=== PATIENT | male | born 1960 | race African-American/Black ===

== ENCOUNTER 2018-11-15 08:14 | Observation (INO) | payer OTHER ==
--- NOTE | 2018-11-15 08:57 | RAD REPORT ---
EXAM DESCRIPTION: RAD - Chest Single View - 11/15/2018 8:47 am CLINICAL HISTORY: COUGH Chest pain. COMPARISON: No comparisons FINDINGS: Portable technique limits examination quality. Mild interstitial pulmonary edema. The heart is normal in size. No displaced fractures.Left-sided jose a ous catheter has tip in the SVC. IMPRESSION: Mild interstitial pulmonary edema.
[2018-11-15] MEDS ORDERED: MORPHINE 4 MG/ML SYR ONE (09:02)
[2018-11-15] MEDS ORDERED: ONDANSETRON 4 MG/2 ML VIAL ONE (09:02)
[2018-11-15 09:17] LABS: Absolute Lymphocytes (CBC) 0.8 K/uL (0.7-4.9); Absolute Monocytes 0.3 K/uL (0.1-1.3); Absolute Neutrophil 2.4 K/uL (1.8-8.0); Basophils % 0.8 % (0-1.3); Eosinophils % 2.5 % (0-4.4); Hematocrit 28.2 % (39.6-49.0); Lymphocytes % 22.9 % (15.3-44.8); MPV 9.8 fL (7.6-11.3); Monocytes % 8.8 % (3.3-12.3); RBC Red Blood Cell Count 3.22 M/uL (4.33-5.43)
[2018-11-15 09:48] LABS: Albumin 3.3 g/dL (3.4-5.0); Bilirubin Direct 0.2 mg/dL (0-0.2); Bilirubin Total 0.7 mg/dL (0.2-1.0); Magnesium 2.4 mg/dL (1.8-2.4); Potassium 4.3 mmol/L (3.5-5.1); Troponin (Emerg Dept Use Only) 0.29 ng/mL (0.0-0.045)
[2018-11-15 09:55] LABS: Protime INR 1.05
--- NOTE | 2018-11-15 10:01 | ER ---
Nurse's Notes [facility] Name: Edson Montilla Age: 58 yrs Sex: Male : 1960 Arrival Date: 11/15/2018 Time: 08:17 Bed 14 Private MD: Diagnosis: End stage renal disease;Dyspnea-VOLUME OVERLOAD;Abdominal tenderness;Type 1 diabetes mellitus;Essential (primary) hypertension;Anemia, unspecified Presentation: 11/15 08:25 Presenting complaint: Patient states: pt reports hx of chronic pain throughout body, sg but worsening this morning in his hands and feet today, reports feeling short of breath at rest, Dialysis on M/W/F, c/o diarrhea starting this morning but reports his stool is always loose, missed dialysis yesterday. Transition of care: patient was not received from another setting of care. Onset of symptoms was November 15, 2018. Risk Assessment: Do you want to hurt yourself or someone else? Patient reports no desire to harm self or others. Initial Sepsis Screen: Does the patient meet any 2 criteria? No. Patient's initial sepsis screen is negative. Does the patient have a suspected source of infection? No. Patient's initial sepsis screen is negative. Care prior to arrival: None. 08:25 Method Of Arrival: Ambulatory sg 08:25 Acuity: CHANDU 3 sg Historical: - Allergies: 08:41 No Known Allergies; iw - Home Meds: 08:41 Lomotil 2.5-0.025 mg oral tab [Active]; hydrocodone-acetaminophen 7.5-325 mg Oral tab 1 iw tab every 6 hours [Active]; Lyrica 75 mg Oral 2 times per day [Active]; amlodipine 10 mg tab 1 tab once daily [Active]; mirtazapine 15 mg Oral TbDL 1 tab once daily [Active]; aspirin 81 mg Oral TbEC 1 tab once daily [Active]; gabapentin 100 mg oral cap 3 caps 3 times per day [Active]; Lantus 100 unit/mL Sub-Q soln 55 unit nightly [Active]; - PMHx: 08:41 Dialysis; Diabetes - IDDM; Hypertension; neuropathy; iw - PSHx: 08:41 None; iw - Immunization history:: Adult Immunizations up to date. - Social history:: Smoking status: Patient/guardian denies using tobacco. - Family history:: not pertinent. - Ebola Screening: : Patient negative for fever greater than or equal to 101.5 degrees Fahrenheit, and additional compatible Ebola Virus Disease symptoms Patient denies exposure to infectious person Patient denies travel to an Ebola-affected area in the 21 days before illness onset No symptoms or risks identified at this time. Screenin:00 Abuse screen: Denies threats or abuse. Denies injuries from another. Nutritional iw screening: No deficits noted. Tuberculosis screening: No symptoms or risk factors identified. Fall Risk IV access (20 points). Assessment: 09:00 General: Appears in no apparent distress. comfortable, well groomed, well developed, sg well nourished, Behavior is calm, cooperative, appropriate for age. Pain: Complains of pain in body aches. Neuro: Level of Consciousness is awake, alert, obeys commands, Oriented to person, place, time, situation, Sulfonator Operator are equal bilaterally Moves all extremities. Full function Gait is steady, Speech is normal, Facial symmetry appears normal, Pupils are PERRLA. Cardiovascular: Reports shortness of breath, Capillary refill is brisk in bilateral fingers Patient's skin is warm and dry. Chest pain is denied. Respiratory: Airway is patent Respiratory effort is even, unlabored, Respiratory pattern is regular, symmetrical, Breath sounds are clear. GI: Abdomen is flat, non-distended, Bowel sounds present X 4 quads. : No signs and/or symptoms were reported regarding the genitourinary system. EENT: No signs and/or symptoms were reported regarding the EENT system. Derm: Skin is intact, is healthy with good turgor, Skin is dry, Skin is normal, Skin temperature is warm. Musculoskeletal: Circulation, motion, and sensation intact. Range of motion: intact in all extremities, Swelling present in right hand, left hand, right foot and left foot. 10:00 Reassessment: Patient appears in no apparent distress at this time. Patient and/or sg family updated on plan of care and expected duration. Pain level reassessed. Patient is alert, oriented x 3, equal unlabored respirations, skin warm/dry/pink. Vital Signs: 08:25 BP 144 / 99; Pulse 87; Resp 18; Temp 97.8; Pulse Ox 97% on R/A; Weight 83.01 kg; Height sg 6 ft. 0 in. (182.88 cm); Pain 10/10; 09:45 BP 152 / 101; Pulse 88; Resp 17; Pulse Ox 98% on R/A; sg 10:30 BP 124 / 89; Pulse 81; Resp 20; Pulse Ox 99% on R/A; aj 10:44 BP 129 / 88; Pulse 85; Resp 20; Temp 98.1(O); Pulse Ox 96% on R/A; mh5 08:25 Body Mass Index 24.82 (83.01 kg, 182.88 cm) sg [place] Coma Score: 09:45 Eye Response: spontaneous(4). Verbal Response: oriented(5). Motor Response: obeys sg commands(6). Total: 15. ED Course: 08:17 Patient arrived in ED. mr 08:21 Manuel Junior MD is Attending Physician. felicia 08:24 Carlos Bermudez, NEHEMIAS is Primary Nurse. sg 08:31 Triage completed. sg 08:31 Arm band placed on. sg 08:43 EKG done, by certified control systems technician. reviewed by Manuel Junior MD. at1 08:47 X-ray completed. Portable x-ray completed in exam room. Patient tolerated procedure jb2 well. 08:47 XRAY Chest (1 view) In Process Unspecified. EDMS 09:08 Initial lab(s) drawn, by me, sent to lab. Inserted saline lock: 24 gauge in right hand, iw using aseptic technique. Blood collected. 10:00 Zhen Glynn MD is Hospitalizing Provider. felicia 12:00 Patient has correct armband on for positive identification. iw 12:00 No provider procedures requiring assistance completed. Patient admitted, IV remains in iw place. Administered Medications: 09:50 Drug: morphine 4 mg Route: IVP; Site: right hand; sg 12:05 Follow up: Response: Pain is decreased aj 09:50 Drug: Zofran 4 mg Route: IVP; Site: right hand; sg 12:05 Follow up: Response: No adverse reaction aj 09:50 Drug: Lasix 60 mg Route: IVP; Site: right hand; sg 12:04 Follow up: Response: No adverse reaction aj 10:20 Drug: Aspirin 162 mg Route: PO; aj 12:03 Follow up: Response: No adverse reaction aj 10:20 Drug: Lopressor (metoprolol TARTRATE) 50 mg Route: PO; aj 12:03 Follow up: Response: No adverse reaction aj Outcome: 10:01 Decision to Hospitalize by Provider. felicia 11:59 Admitted to Tele accompanied by tech, via wheelchair, room 209, with chart, Report iw called to NEHEMIAS Lou 11:59 Condition: good 11:59 Discharge instructions given to patient, Instructed on the need for admit, Demonstrated understanding of instructions. 12:07 Patient left the ED. aj Signatures: Dispatcher [employer] EDCarlos Conner RN RN sg Myers, Amanda, RN RN aj Anderson, Corey, MD MD cha Rivera, Lynn mr Padavid, Drew jb2 Tiffanie Mayfield RN RN iw Gonzales, Amanda, erp pm EKG [facility]1 Marleny Beal 5 Corrections: (The following items were deleted from the chart) 08:37 08:25 Presenting complaint: Patient states: pt reports hx of chronic pain throughout iw body, but worsening this morning in his hands and feet today, reports feeling short of breath at rest, Dialysis on M/W/F, c/o diarrhea starting this morning but reports his stool is always loose sg
--- NOTE | 2018-11-15 10:02 | EDPHYS ---
Physician Documentation [facility] Name: Edson Montilla Age: 58 yrs Sex: Male : 1960 Arrival Date: 11/15/2018 Time: 08:17 Bed 14 Private MD: ED Physician Manuel Junior HPI: 11/15 08:31 This 58 yrs old Black Male presents to ER via Unassigned with complaints of Diarrhea, felicia Breathing Difficulty. 08:31 The patient presents to the emergency department with nausea, diarrhea, abdominal pain, felicia of the suprapubic area, right upper quadrant, left upper quadrant, right lower quadrant and left lower quadrant. Onset: The symptoms/episode began/occurred 3 day(s) ago. Possible causes: unknown. The symptoms are aggravated by nothing. The symptoms are alleviated by nothing. Severity of symptoms: At their worst the symptoms were mild in the emergency department the symptoms are unchanged. The patient has experienced similar episodes in the past, multiple times. Historical: - Allergies: 08:41 No Known Allergies; iw - Home Meds: 08:41 Lomotil 2.5-0.025 mg oral tab [Active]; hydrocodone-acetaminophen 7.5-325 mg Oral tab 1 iw tab every 6 hours [Active]; Lyrica 75 mg Oral 2 times per day [Active]; amlodipine 10 mg tab 1 tab once daily [Active]; mirtazapine 15 mg Oral TbDL 1 tab once daily [Active]; aspirin 81 mg Oral TbEC 1 tab once daily [Active]; gabapentin 100 mg oral cap 3 caps 3 times per day [Active]; Lantus 100 unit/mL Sub-Q soln 55 unit nightly [Active]; - PMHx: 08:41 Dialysis; Diabetes - IDDM; Hypertension; neuropathy; iw - PSHx: 08:41 None; iw - Immunization history:: Adult Immunizations up to date. - Social history:: Smoking status: Patient/guardian denies using tobacco. - Family history:: not pertinent. - Ebola Screening: : Patient negative for fever greater than or equal to 101.5 degrees Fahrenheit, and additional compatible Ebola Virus Disease symptoms Patient denies exposure to infectious person Patient denies travel to an Ebola-affected area in the 21 days before illness onset No symptoms or risks identified at this time. ROS: 08:31 Constitutional: Negative for fever, chills, and weight loss, Eyes: Negative for injury, felicia pain, redness, and discharge, ENT: Negative for injury, pain, and discharge, Neck: Negative for injury, pain, and swelling, Cardiovascular: Negative for chest pain, palpitations, and edema, Respiratory: Negative for shortness of breath, cough, wheezing, and pleuritic chest pain, Back: Negative for injury and pain, : Negative for injury, bleeding, discharge, and swelling, MS/Extremity: Negative for injury and deformity, Skin: Negative for injury, rash, and discoloration, Neuro: Negative for headache, weakness, numbness, tingling, and seizure, Psych: Negative for depression, anxiety, suicide ideation, homicidal ideation, and hallucinations, Allergy/Immunology: Negative for hives, rash, and allergies, Endocrine: Negative for neck swelling, polydipsia, polyuria, polyphagia, and marked weight changes, Hematologic/Lymphatic: Negative for swollen nodes, abnormal bleeding, and unusual bruising. 08:31 Abdomen/GI: Positive for abdominal pain, diarrhea. Exam: 08:31 Constitutional: This is a well developed, well nourished patient who is awake, alert, felicia and in no acute distress. Head/Face: Normocephalic, atraumatic. Eyes: Pupils equal round and reactive to light, extra-ocular motions intact. Lids and lashes normal. Conjunctiva and sclera are non-icteric and not injected. Cornea within normal limits. Periorbital areas with no swelling, redness, or edema. ENT: Nares patent. No nasal discharge, no septal abnormalities noted. Tympanic membranes are normal and external auditory canals are clear. Oropharynx with no redness, swelling, or masses, exudates, or evidence of obstruction, uvula midline. Mucous membranes moist. Neck: Trachea midline, no thyromegaly or masses palpated, and no cervical lymphadenopathy. Supple, full range of motion without nuchal rigidity, or vertebral point tenderness. No Meningismus. Chest/axilla: Normal chest wall appearance and motion. Nontender with no deformity. No lesions are appreciated. Cardiovascular: Regular rate and rhythm with a normal S1 and S2. No gallops, murmurs, or rubs. Normal PMI, no JVD. No pulse deficits. Respiratory: Lungs have equal breath sounds bilaterally, clear to auscultation and percussion. No rales, rhonchi or wheezes noted. No increased work of breathing, no retractions or nasal flaring. Back: No spinal tenderness. No costovertebral tenderness. Full range of motion. MS/ Extremity: Pulses equal, no cyanosis. Neurovascular intact. Full, normal range of motion. Neuro: Awake and alert, GCS 15, oriented to person, place, time, and situation. Cranial nerves II-XII grossly intact. Motor strength 5/5 in all extremities. Sensory grossly intact. Cerebellar exam normal. Normal gait. Psych: Awake, alert, with orientation to person, place and time. Behavior, mood, and affect are within normal limits. 08:31 Abdomen/GI: Inspection: distension, Bowel sounds: normal, Palpation: nontender, Liver: no appreciated palpable abnormalities, Hernia: not appreciated. Vital Signs: 08:25 BP 144 / 99; Pulse 87; Resp 18; Temp 97.8; Pulse Ox 97% on R/A; Weight 83.01 kg; Height sg 6 ft. 0 in. (182.88 cm); Pain 10/10; 09:45 BP 152 / 101; Pulse 88; Resp 17; Pulse Ox 98% on R/A; sg 10:30 BP 124 / 89; Pulse 81; Resp 20; Pulse Ox 99% on R/A; aj 10:44 BP 129 / 88; Pulse 85; Resp 20; Temp 98.1(O); Pulse Ox 96% on R/A; mh5 08:25 Body Mass Index 24.82 (83.01 kg, 182.88 cm) Jessica Coma Score: 09:45 Eye Response: spontaneous(4). Verbal Response: oriented(5). Motor Response: obeys sg commands(6). Total: 15. MDM: 08:21 Patient medically screened. felicia 08:34 Data reviewed: vital signs, nurses notes, lab test result(s), EKG, radiologic studies, felicia plain films. 11/15 08:31 Order name: Basic Metabolic Panel; Complete Time: 09:54 felicia 11/15 08:31 Order name: CBC with Diff [facility] 11/15 08:31 Order name: LFT's; Complete Time: 09:54 [facility] 11/15 08:31 Order name: Magnesium; Complete Time: 09:54 [facility] 11/15 08:31 Order name: NT PRO-BNP; Complete Time: 09:54 [facility] 11/15 08:31 Order name: PT-INR [facility] 11/15 08:31 Order name: Troponin (emerg Dept Use Only); Complete Time: 09:54 [facility] 11/15 10:24 Order name: CBC Smear Scan EDAZ 11/15 10:48 Order name: CBC with Automated Diff EDMS 11/15 10:48 Order name: CBC with Automated Diff EDMS 11/15 10:48 Order name: CBC with Automated Diff EDMS 11/15 10:48 Order name: Comprehensive Metabolic Panel EDMS 11/15 10:48 Order name: Comprehensive Metabolic Panel EDMS 11/15 10:48 Order name: Comprehensive Metabolic Panel [facility]DAZ 11/15 08:31 Order name: XRAY Chest (1 view); Complete Time: 09:24 [facility] 11/15 08:31 Order name: EKG; Complete Time: 08:32 [facility] 11/15 08:31 Order name: Cardiac monitoring; Complete Time: 11:59 [facility] 11/15 08:31 Order name: EKG - Nurse/Tech; Complete Time: 10:16 [facility] 11/15 08:31 Order name: IV Saline Lock; Complete Time: 10:16 [facility] 11/15 08:31 Order name: Labs collected and sent; Complete Time: 10:16 [facility] 11/15 08:31 Order name: O2 Per Protocol; Complete Time: 10:16 [facility] 11/15 08:31 Order name: O2 Sat Monitoring; Complete Time: 10:16 [facility] 11/15 10:48 Order name: CONS Physician Consult [facility] 11/15 10:48 Order name: Renal EDMS Administered Medications: 09:50 Drug: morphine 4 mg Route: IVP; Site: right hand; sg 12:05 Follow up: Response: Pain is decreased aj 09:50 Drug: Zofran 4 mg Route: IVP; Site: right hand; sg 12:05 Follow up: Response: No adverse reaction aj 09:50 Drug: Lasix 60 mg Route: IVP; Site: right hand; sg 12:04 Follow up: Response: No adverse reaction aj 10:20 Drug: Aspirin 162 mg Route: PO; aj 12:03 Follow up: Response: No adverse reaction aj 10:20 Drug: Lopressor (metoprolol TARTRATE) 50 mg Route: PO; aj 12:03 Follow up: Response: No adverse reaction aj Disposition: 11/15/18 10:01 Hospitalization ordered by Zhen Glynn for Observation. Preliminary diagnosis are End stage renal disease, Dyspnea - VOLUME OVERLOAD, Abdominal tenderness, Type 1 diabetes mellitus, Essential (primary) hypertension, Anemia, unspecified. - Bed requested for Telemetry/MedSurg (observation). - Status is Observation. aj - Condition is Fair. - Problem is new. - Symptoms are unchanged. UTI on Admission? No Signatures: Dispatcher [employer] EDCarlos Conner RN RN sg Myers, Amanda, RN RN aj Anderson, Corey, MD MD cha Williams, Irene, RN RN iw Martinez, Eric em1 Corrections: (The following items were deleted from the chart) 11:41 10:01 Hospitalization Ordered by Zhen Glynn MD for Observation. Preliminary diagnosis em1 is End stage renal disease; Dyspnea - VOLUME OVERLOAD; Abdominal tenderness; Type 1 diabetes mellitus; Essential (primary) hypertension; Anemia, unspecified. Bed requested for Telemetry/MedSurg (observation). Status is Observation. Condition is Fair. Problem is new. Symptoms are unchanged. UTI on Admission? No. felicia 12:07 11:41 11/15/2018 10:01 Hospitalization Ordered by Zhen Glynn MD for Observation. aj Preliminary diagnosis is End stage renal disease; Dyspnea - VOLUME OVERLOAD; Abdominal tenderness; Type 1 diabetes mellitus; Essential (primary) hypertension; Anemia, unspecified. Bed requested for Telemetry/MedSurg (observation). Status is Observation. Condition is Fair. Problem is new. Symptoms are unchanged. UTI on Admission? No. em1
[2018-11-15] MEDS ORDERED: FUROSEMIDE 40 MG/4 ML VIAL ONE (10:12)
[2018-11-15] MEDS ORDERED: FUROSEMIDE 20 MG/ 2ML VIAL ONE (10:12)
[2018-11-15 10:23] LABS: Blood Morphology Comment NOT SEEN (NOT SEEN); Platelet Estimate DECR; Urine White Blood Cell Casts OK
[2018-11-15] MEDS ORDERED: METOPROLOL TAR 50 MG TAB ONE (10:27)
[2018-11-15] MEDS ORDERED: ASPIRIN 81 MG CHEWABLE TABLET ONE (10:27)
[2018-11-15] MEDS ORDERED: ONDANSETRON 4 MG/2 ML VIAL IV PRN (10:43)
[2018-11-15] MEDS ORDERED: ACETAMINOPHEN 500 MG TAB PO PRN (10:43)
[2018-11-15] MEDS: INSULIN -REGULAR HUMAN 50 UNIT/0.5 ML ML SQ SCH ×3 (11:30→21:40)
--- NOTE | 2018-11-15 12:04 | EKG ---
Test Date: 2018-11-15 Test Time: 08:39:43 [employer] Mob[employer] Specialist: ERIN MEASUREMENT RESULTS: Intervals: Rate: 86 [place]: 188 QRSD: 86 QT: 388 QTc: 464 [place]: P: 41 [place]: 188 QRS: -16 T: 103 INTERPRETIVE STATEMENTS: Normal sinus rhythm Moderate voltage criteria for LVH, may be normal variant Abnormal QRS-T angle, consider primary T wave abnormality Abnormal ECG No previous ECG available for comparison Electronically Signed On 11-15-18 12:02:49 BASKET PERSON by Brad Huang
[2018-11-15] MEDS ORDERED: NA CHLORIDE 0.9% 1,000 ML IV PRN (14:32)
[2018-11-15] MEDS ORDERED: MANNITOL 25% 12.5 GM/50 ML VIAL IV PRN (14:32)
[2018-11-15] MEDS ORDERED: EPOETIN ALFA 10,000 UNIT/ML VIAL IV SCH (14:45)
[2018-11-15] MEDS ORDERED: ALBUMIN HUMAN 25% 50 ML IV SCH (15:00)
[2018-11-15] MEDS: SEVELAMER CARBONATE 800 MG TABLET PO SCH (17:23)
[2018-11-15] MEDS: DIPHENOX/ATROP SULF 1 TAB PO SCH ×2 (17:23→23:37)
--- NOTE | 2018-11-15 20:37 | P.CNS ---
Date of Consult: 11/15/18 Reason for Consult: ESRD Requesting Physician: Zhen Glynn Chief Complaint: Diarrhea History of Present Illness: 08:31 This 58 yrs old Black Male presents to ER via Unassigned with complaints of Diarrhea, felicia Breathing Difficulty. 08:31 The patient presents to the emergency department with nausea, diarrhea, abdominal pain, felicia of the suprapubic area, right upper quadrant, left upper quadrant, right lower quadrant and left lower quadrant. Onset: The symptoms/episode began/occurred 3 day( s) ago. Possible causes: unknown. The symptoms are aggravated by nothing. The symptoms are alleviated by nothing. Severity of symptoms: At their worst the symptoms were mild in the emergency department the symptoms are unchanged. The patient has experienced similar episodes in the past, multiple times. Allergies No Known Allergies Allergy (Unverified 11/15/18 10:59) Home medications list reviewed: Yes Home Medications: Amlodipine Besylate 10 mg PO DAILY 11/15/18 Aspirin [Aspirin EC 81 MG] 81 mg PO DAILY 11/15/18 Carvedilol [Coreg*] 6.25 mg PO BID 11/15/18 Diphenox/Atropine [Lomotil*] 5 mg PO Q6H 11/15/18 Fluticasone Propionate 1 spray NS DAILY 11/15/18 Gabapentin [Neurontin*] 100 mg PO BEDTIME 11/15/18 Insulin Glargine,Hum.rec.anlog [Lantus Solostar] 50 units SQ DAILY 11/15/18 Mirtazapine [Remeron*] 15 mg PO BEDTIME 11/15/18 Pregabalin [Lyrica*] 75 mg PO BID 11/15/18 Sevelamer Carbonate [Renvela*] 800 mg PO TIDWM #90 tablet 11/16/18 - Past Medical/Surgical History Diabetic: Yes -: HTN -: ESRD -: DM -: HIGH CHOLESTEROL -: CHRONIC DIARRHEA -: NEUROPATHY -: AV GRAFT PLACEMENT -: TESSIO PLACEMENT -: LEFT PINKY AMPUTATION - Social History Alcohol use: No CD- Drugs: No Caffeine use: No Place of Residence: Home Review of Systems 10-point ROS is otherwise unremarkable General: Weakness, Malaise Gastrointestinal: Abdominal Pain, Diarrhea, Distention Neurological: Weakness Physical Examination Temp Pulse Resp BP Pulse Ox 97.7 F 83 19 129/79 94 11/15/18 16:00 11/15/18 16:00 11/15/18 16:00 11/15/18 16:00 11/15/18 16:00 General: Alert, Oriented x3, Cooperative HEENT: Atraumatic, Mucous membr. moist/pink Neck: Supple, JVD distended Respiratory: Clear to auscultation bilaterally Cardiovascular: Regular rate/rhythm, No rubs, Edema Gastrointestinal: Soft and benign, Non-distended, No guarding Musculoskeletal: No clubbing, No contractures Integumentary: No rashes, No cyanosis Neurological: Normal speech Laboratory Data (last 24 hrs) 11/15/18 09:00: PT 12.4, INR 1.05 11/15/18 09:00: WBC 3.7 L, Hgb 9.4 L, Hct 28.2 L, Plt Count 37 L* 11/15/18 09:00: Sodium 140, Potassium 4.3, BUN 75 H, Creatinine 9.12 H*, Glucose 249 H, Magnesium 2.4, Total Bilirubin 0.7, AST 16, ALT 29, Alkaline Phosphatase 107 Imagings Data: EXAM DESCRIPTION: RAD - Chest Single View - 11/15/2018 8:47 am CLINICAL HISTORY: COUGH Chest pain. COMPARISON: No comparisons FINDINGS: Portable technique limits examination quality. Mild interstitial pulmonary edema. The heart is normal in size. No displaced fractures.Left-sided venous catheter has tip in the SVC. IMPRESSION: Mild interstitial pulmonary edema. Conclusions/Impression: A/ ESRD on HD. HTN with CKD/ CHF. Diastolic CHF, chronic. DM II with CKD. Anemia in CKD. Pancytopenia. MICHAEL/ Secondary HyperPTH. Indigestion/ Diarrhea. P/ Continue current POC and Medications. Arrange for acute HD. Restart home medications as indicated. Consider GI evaluation for persistent GI symptoms. No NSAIDs. AM labs. Daily weight. Thank you kindly for the consultation.
[2018-11-15] MEDS ORDERED: GABAPENTIN 100 MG CAP PO SCH (21:00)
[2018-11-15] MEDS: CARVEDILOL 6.25 MG TAB PO SCH (21:00)
[2018-11-15] MEDS ORDERED: MIRTAZAPINE 15 MG TAB PO SCH (21:00)
[2018-11-15] MEDS: PREGABALIN 75 MG CAP PO SCH (21:32)
--- NOTE | 2018-11-15 22:48 | HP ---
Date of Admission: 11/15/2018 Chief Complaint: Shortness of breath. Consultants: Dr. Oshea with Nephrology. Pcp: None. History Of Present Illness: The patient is a 58-year-old male with past medical history of diabetes mellitus on insulin, hypertension, end-stage renal disease on dialysis on a Monday, Monday, Monday , who missed his last dialysis day due to chronic diarrhea. The patient has been following up with ROSALIO Huston for outpatient workup regarding his chronic diarrhea which has been ongoing since er of 2016. The patient felt shortness of breath. Otherwise, was feeling somewhat tired as well and came into the ER. He otherwise denies any fevers, chills. The patient was nauseous. No vomiting. No chest pain. No lightheadedness or dizziness. His workup revealed a creatinine of 9.12. BNP was [address]. White blood cell count was 3.7, platelets were low at 37,000. X-ray revealed mild interstit ial pulmonary edema. Dr. Oshea was consulted by the ER and the patient will be set up for dialysis today. When seen in the ER, the patient was awake, alert, oriented x3 in some mild distress. Past Medical History: Diabetes mellitus type 2 insulin-requiring, hypertension, end-stage renal dise ase on dialysis, hepatitis C status post treatment. Surgical History: Dialysis catheter placement. AV fistula on the left, which was discontinued. 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 Allergies: NO KNOWN DRUG ALLERGIES. Medications: List reviewed. Social History: The patient denies any tobacco use, was a heavy drinker in the past. Does not drink anymore. The patient is , has 1 daughter. Family History: The patient says the diabetes runs in the family. Review of Systems: An 11-point system reviewed, negative except as per HPI. Physical Examination: Vital Signs: Blood pressure 144/99, pulse 87, respirations 18, temperature 97.8, pulse ox 97% on rtuhie m air. General: Awake, alert, oriented x3, in some mild distress. Not in any acute respiratory distress. HEENT: Normocephalic, atraumatic. PERRLA. EOMI. Moist mucous membranes. Oropharynx is clear. Po or dentition. Conjunctivae are anicteric. Neck: Supple. No JVD. Trachea midline. CV: S1 and S2. Regular rate and rhythm. Peripheral pulses present. No murmurs. Respiratory: Diminished breath sounds. Crackles heard. No wheezing. No stridor. Gastrointestinal: Abdomen is soft, nontender. Mild distention. Bowel sounds are positive. Extremities: No clubbing, cyanosis. The patient has bilateral lower extremity edema 3+. No calf te nderness. Neuro: Cranial nerves 2 to 12 intact grossly. No focal neurological deficit. Speech is normal. St rength is 5/5 bilateral upper and lower extremities. Sensation intact to light touch except bilatera l feet. The patient does have some decreased sensation. PSYCH: Mood is okay. Affect is full. Insight and judgment are good. Laboratory Data: INR 1.05. Sodium 140, potassium 4.3, chloride 102, CO2 of 24, BUN 75, creatinine 9 .12, glucose 249, calcium 8.4, magnesium 2.4. Troponin 0.29. BNP 14,673. Albumin 3.3. WBC 3.7. H and H 9.4 and 28.2, platelets 37. Chest x-ray personally reviewed, shows mild interstitial pulmonar y edema. Left-sided venous catheter in place. Assessment And Plan: A 58-year-old male with: 1.Acute dyspnea, likely secondary to volume overload from missed dialysis. 2.End-stage renal disease, on hemodialysis. The patient missed Monday's treatment. Dr. Lawrence zafar has been consulted. We will dialyze the patient today. The patient has been counseled. 3.Chronic diarrhea. The patient takes a regimen of Lomotil, has been following up with Dr. Margo zafar an outpatient for workup and this is been ongoing since 2017. 4.Diabetes mellitus type 2, insulin-requiring. We will continue with sliding scale insulin, continu e Accu-Cheks and resume home dose. 5.Essential hypertension, not well controlled. Resume home medications as appropriate. 6.Gastrointestinal and deep venous thrombosis prophylaxis, addressed. No chemical anticoagulation d ue to low platelets. We will place on SCDs. 7.Thrombocytopenia. May be related to chronic hepatitis C. 8.Hepatitis C. The patient states that he was treated for hepatitis C, however, does seem to be an anemic, thrombocytopenic. Liver enzymes within normal limits. We will continue to monitor. Plan: Admit the patient to Med-Surg, place as observation. TATUM Voice ID: [id number]
[2018-11-16 05:35] LABS: Absolute Lymphocytes (CBC) 0.9 K/uL (0.7-4.9); Absolute Monocytes 0.4 K/uL (0.1-1.3); Absolute Neutrophil 2.9 K/uL (1.8-8.0); Basophils % 0.4 % (0-1.3); Eosinophils % 2.4 % (0-4.4); Hematocrit 29.6 % (39.6-49.0); Lymphocytes % 21.6 % (15.3-44.8); MPV 9.4 fL (7.6-11.3); Monocytes % 8.7 % (3.3-12.3)
[2018-11-16] MEDS: DIPHENOX/ATROP SULF 1 TAB PO SCH (05:51)
[2018-11-16 06:09] LABS: Albumin 3.3 g/dL (3.4-5.0); Bilirubin Total 0.8 mg/dL (0.2-1.0); Potassium 4.2 mmol/L (3.5-5.1)
[2018-11-16 08:03] LABS: Urine Appearance CLOUDY; Urine Bilirubin NEGATIVE (NEG); Urine Blood 2+ (NEG); Urine Color YELLOW; Urine Glucose NEGATIVE (NEG); Urine Protein 2+ (NEG); Urine Specific Gravity 1.015 (1.005-1.030); Urine Urobilinogen 0.2 mg/dL (0.2-1.0); Urine pH 5.5 (5.0-7.0)
[2018-11-16 08:09] LABS: Urine Microscopic Reflex ORDER UMIC
[2018-11-16] MEDS: INSULIN -REGULAR HUMAN 50 UNIT/0.5 ML ML SQ SCH (08:36)
[2018-11-16] MEDS: CARVEDILOL 6.25 MG TAB PO SCH (08:38)
[2018-11-16] MEDS: PREGABALIN 75 MG CAP PO SCH (08:38)
[2018-11-16] MEDS: SEVELAMER CARBONATE 800 MG TABLET PO SCH (08:38)
[2018-11-16 08:50] LABS: Urine Bacteria <20 /HPF (NONE SEEN)
[2018-11-16 08:51] LABS: Urine Amorphous Sediment TRACE /HPF (NONE SEEN); Urine Culture Reflex Order NOT NEEDED; Urine Mucus SLIGHT /HPF (NONE SEEN)
[2018-11-16] MEDS ORDERED: AMLODIPINE 10 MG TAB PO SCH (09:00)
[2018-11-16] MEDS ORDERED: INSULIN GLARGINE HUM REC ANLOG 50 UNIT SQ SCH (09:00)
[2018-11-16] MEDS ORDERED: ASPIRIN EC 81 MG TAB PO SCH (09:00)
[2018-11-16] MEDS ORDERED: VITAMIN D 5,000 UNIT CAP PO SCH (09:00)
[2018-11-16] MEDS ORDERED: CALCITROL 0.25 MCG CAP PO SCH (09:00)
[2018-11-16] MEDS ORDERED: INSULIN GLARGINE 100 UNITS/ML SQ SCH (09:00)
[2018-11-16] MEDS ORDERED: FLUTICASONE 50MCG NASAL SPRAY NAS SCH (09:00)
--- NOTE | 2018-11-16 13:31 | CON ---
Chief Complaint: Diarrhea. Reason For Consult: Abnormal troponin. History Of Present Illness: Mr. Montilla has been having what sounds like a viral illness, one that see ms to be quite common in our area recently. He had nausea, diarrhea, anorexia. When he came to the hospital, troponins were drawn. There were abnormal. Mr. Montilla is a long-term dialysis patient. He has longstanding hypertension, diabetes. He has never had myocardial infarction, stroke, or vascula r disease. He takes insulin, amlodipine, Lyrica, mirtazapine, Lomotil, carvedilol, and aspirin as an outpatient. Denies having any chest pain. Physical Examination: General: He is 6 feet tall, 187 pounds. Alert, oriented, pleasant, not in distress. Lungs: Clear. Heart: Does not reveal a friction rub or gallop. No significant murmur. Abdomen: Soft. Extremities: Unremarkable, although distal pulses are slightly diminished. Laboratory Data: His EKG shows LVH with repolarization abnormality. His troponin is 0.29. It has n ot been repeated. Recommendation: I do not think we need to take any extraordinary measures to do an inpatient workup. I think at some point Mr. Montilla could have an echocardiogram and stress test. He can do these as a n outpatient, and I think Dr. Glynn could probably discharge him home and have him call my office or the office of the step finisher he wishes and arrange those tests. A nuclear stress test and an echocardiogram would be required. YANIRA Voice ID: [id number] Report ID: [id number]
--- NOTE | 2018-11-17 03:35 | DS ---
Date of Discharge: 11/16/2018 Manager Licensing: Dr. Oshea with Nephrology. Dr. Huang with cardiology Discharge Diagnoses: 1. Acute dyspnea secondary to volume overload. 2. End-stage renal disease, on hemodialysis. 3. Chronic diarrhea. 4. Diabetes mellitus type 2, insulin requiring, with hyperglycemia and chronic kidney disease, on dialysis. 5. Essential hypertension, not well controlled. 6. Thrombocytopenia. 7. Hepatitis C, likely chronic without coma. 8. Elevated troponin Hospital Course: The patient is a 58-year-old male, past medical history of diabetes, hypertension, end-stage renal disease, on dialysis Monday, Monday, Monday, hepatitis C, who has developed chronic diarrhea over the past year and a half. The patient comes in with shortness of breath after missing his dialysis on Monday due to significant diarrhea. The patient has been following up with Dr. Aragon regarding the diarrhea and has had several workup and is scheduled for EGD soon. The patient was found to have elevated BNP. Chest x-ray revealed interstitial pulmonary edema. The patient was short of breath. He also had elevated troponin at 0.29, which was likely due to demand mismatch. Cardiology was consulted. Dr. Huang did not recommend any further intervention. The patient did not have any chest pain. No acute changes on EKG. No ST elevation. The patient was dialyzed on the day of admission by Dr. Oshea. The patient felt significantly better. His dyspnea resolved. The patient otherwise did well over the course of the hospital stay. He was able to ambulate without difficulty. He was then cleared for discharge from architecture consultant's standpoint. Condition: Stable. Activity: As tolerated. Medications: As per medication reconciliation list. Diet: Renal. Followup: Follow up with primary care physician in 2 to 3 days. Follow up with profile saw operator, Dr. Oshea, in 2 weeks. Return to ER for worsening condition. Physical Examination: General: Awake, alert, oriented x3. No acute distress. CV: S1, S2. Peripheral pulses present. No murmurs. Regular rate and rhythm. Respiratory: Moving air well bilaterally. No wheezing. Gastrointestinal: Abdomen is soft, nontender, nondistended. Positive bowel sounds. Extremities: No clubbing, cyanosis, or edema. Neurologic: Nonfocal. SA/MODL Voice ID: [id number] Report ID: [id number]
== END 2018-11-16 11:26 | disposition home or self-care (01) ==
LOC: ER 08:14 → ERHOLD 10:41 → 2ND 11:51
PROVIDERS: ADMIT Family Medicine; ATTEND Family Medicine
PROC: 5A1D70Z Performance of Urinary Filtration, Intermittent, Less than 6 Hours Per Day (ICD-10-PCS; principal; 2018-11-15)
DX: I13.2 Hypertensive heart and chronic kidney disease with heart failure and with stage 5 chronic kidney disease, or end stage renal disease (principal); E11.22 Type 2 diabetes mellitus with diabetic chronic kidney disease; E11.65 Type 2 diabetes mellitus with hyperglycemia; N18.6 End stage renal disease; I50.32 Chronic diastolic (congestive) heart failure; R06.00 Dyspnea, unspecified; Z99.2 Dependence on renal dialysis; K52.9 Noninfective gastroenteritis and colitis, unspecified; R19.7 Diarrhea, unspecified; D69.6 Thrombocytopenia, unspecified; R79.89 Other specified abnormal findings of blood chemistry; Z86.19 Personal history of other infectious and parasitic diseases
CPT/HCPCS: 36415; 71045; 80048; 80053; 80076; 82962 ×3; 83735; 83880; 84484; 85025 ×2; 85610; 90935; 93005; 94760 ×3; 96374; 96375; 99285; G0257; G0378 ×2; J1940 ×2; J2405; 81003; 81015